=== PATIENT | male | born 1960 | race African-American/Black ===

== ENCOUNTER 2017-07-01 03:46 | Emergency (ER) | payer MEDICAID ==
[~2017-07-01] VITALS: Ht 170.2 cm; Wt 68.0 kg
[2017-07-01 04:01] VITALS: BP 149/97
[2017-07-01] MEDS ORDERED: HYDROcodone-ACET 5/325MG TAB PO ONE (06:45)
[2017-07-01] MEDS ORDERED: KETOROLAC TROMETH 60MG/2ML VIAL IM ONE (06:45)
[2017-07-01 06:57] LABS: Basophils # (auto) 0 uL; Mean Corpuscular Volume 78.9 fL (80.0-100.0); Nucleated Red Blood Cells % 0.2 %; Platelet Count (auto) 326 10^3/uL (140-450)
[2017-07-01 07:00] LABS: Basophils % (auto) 0.5 % (0.0-2.0); Eosinophils # (auto) 0 uL; Eosinophils % (auto) 0.5 % (0.0-7.0); Hematocrit 39.5 % (41.0-53.0); Hemoglobin 13.5 g/dL (13.5-17.5); Lymphocytes # (auto) 1.1 uL; Lymphocytes % (auto) 17.8 % (10.0-50.0); Mean Corpuscular Hemoglobin 26.9 pg (28.0-32.0); Mean Corpuscular Hgb Conc. 34.1 g/dL (32.0-36.0); Monocytes # (auto) 0.7 uL; Neutrophils # (auto) 4.4 uL; Neutrophils % (auto) 70.2 % (37.0-80.0); White Blood Cell 6.3 10^3/uL (4.4-10.8)
[2017-07-01 07:23] LABS: Albumin 4.4 g/dL (3.4-5.0); BUN/Creatinine Ratio 12.8; Bilirubin, Total 0.4 mg/dL (0.2-1.0); Calcium 9.3 mg/dL (8.5-10.1); Potassium 3.7 mmol/L (3.5-5.1); Total Protein 8.9 g/dL (6.4-8.2)
== END 2017-07-01 07:51 | disposition home or self-care (01) ==
LOC: ER 03:51
DX: I69.318 Other symptoms and signs involving cognitive functions following cerebral infarction (principal); I10 Essential (primary) hypertension
CPT/HCPCS: 36415; 70450; 80053; 85025; 93005; 96372; 99285; J1885